=== PATIENT | female | born 1985 | race Hispanic/Latino ===

== ENCOUNTER 2017-05-20 16:17 | Emergency (ER) | payer SELFPAY ==
[2017-05-20] MEDS ORDERED: IPRATROPIUM/ALBUTEROL SULFATE 3 ML SOLUTION IH ONE (18:29)
== END 2017-05-20 19:52 | disposition home or self-care (01) ==
LOC: EDH 16:17
DX: J20.9 Acute bronchitis, unspecified (principal); Z98.51 Tubal ligation status; Z90.49 Acquired absence of other specified parts of digestive tract
CPT/HCPCS: 71046; 81025; 87804; 94640

== ENCOUNTER 2017-06-23 09:50 | Emergency (ER) | payer SELFPAY | END 2017-06-23 11:14 | disposition home or self-care (01) | LOC: EDH 09:50 | DX: T16.1XXA Foreign body in right ear, initial encounter (principal); X58.XXXA Exposure to other specified factors, initial encounter; Y93.89 Activity, other specified; Y92.89 Other specified places as the place of occurrence of the external cause; Y99.8 Other external cause status ==

== ENCOUNTER 2017-09-05 20:49 | Emergency (ER) | payer OTHER ==
[2017-09-05 21:40] LABS: APPEARANCE,URINE Cloudy (CLEAR); BILIRUBIN,URINE Negative (NEGATIVE); COLOR,URINE Yellow (YELLOW); GLUCOSE, URINE (UA) Negative (NEGATIVE); KETONES,URINE Trace mg/dL (NEGATIVE); LEUKOCYTE ESTERASE ,URINE Moderate (NEGATIVE); NITRATE,URINE Positive (NEGATIVE); OCCULT BLOOD,URINE Large (NEGATIVE); PROTEIN,URINE 300 (NEGATIVE)
[2017-09-05] MEDS ORDERED: ACETAMINOPHEN EXTRA STRENGTH 500 MG TABLET ONE (22:07)
[2017-09-05 22:10] LABS: RBC,URINE >100 /HPF (0-1)
[2017-09-05 22:11] LABS: BACTERIA,URINE Moderate /HPF (None Seen); WBC,URINE 26-50 /HPF (0-1)
[2017-09-05 22:13] LABS: MUCUS,URINE Moderate LPF (None Seen)
== END 2017-09-05 22:25 | disposition home or self-care (01) ==
LOC: EDH 20:49
DX: N39.0 Urinary tract infection, site not specified (principal)
CPT/HCPCS: 81001; 81025

== ENCOUNTER 2019-05-31 14:13 | Emergency (ER) | payer SELFPAY ==
[2019-05-31 14:46] LABS: APPEARANCE,URINE Cloudy (CLEAR); BILIRUBIN,URINE Negative (NEGATIVE); COLOR,URINE Yellow (YELLOW); GLUCOSE, URINE (UA) Negative (NEGATIVE); KETONES,URINE Negative (NEGATIVE); LEUKOCYTE ESTERASE ,URINE Moderate (NEGATIVE); NITRATE,URINE Negative (NEGATIVE); OCCULT BLOOD,URINE Negative (NEGATIVE); PROTEIN,URINE Negative (NEGATIVE)
[2019-05-31 14:52] LABS: AMPHET/METH SCREEN,URINE NEGATIVE (NEGATIVE); BACTERIA,URINE Few /HPF (None Seen); BARBITURATE SCREEN, URINE NEGATIVE (NEGATIVE); BENZODIAZEPINES SCREEN,URINE NEGATIVE (NEGATIVE); CANNABINOID SCREEN,URINE NEGATIVE (NEGATIVE); COCAINE SCREEN,URINE NEGATIVE (NEGATIVE); MUCUS,URINE Few LPF (None Seen); OPIATE SCREEN,URINE NEGATIVE (NEGATIVE); PHENCYCLIDINE SCREEN,URINE NEGATIVE (NEGATIVE); RBC,URINE 0-1 /HPF (0-1)
[2019-05-31 14:54] LABS: SQUAMOUS EPITHELIAL CELL,UR Moderate /HPF (0-2)
[2019-05-31 15:03] LABS: BASOPHILS % (AUTO) 0.6 % (0.0-5.0); EOSINOPHILS % (AUTO) 3.1 % (0.0-8.0); LYMPHOCYTES % (AUTO) 29.1 % (21.0-51.0); MEAN CORPUSCULAR HEMOGLOBIN 29.5 pg (27.0-33.0); MEAN CORPUSCULAR HGB CONC 33.8 g/dL (32.0-36.0); MEAN CORPUSCULAR VOLUME 87.5 fL (79-99); MONOCYTES % (AUTO) 6.3 % (3.0-13.0); NEUTROPHILS % (AUTO) 60.5 % (40.0-77.0); PLATELET COUNT (AUTO) 315 K/uL (130-400); RED BLOOD CELL COUNT(AUTO) 4.57 MIL/uL (4.00-5.50); RED CELL DISTRIBUTION WIDTH 13.4 % (11.0-15.5); WHITE BLOOD COUNT (AUTO) 8.4 K/uL (4.8-10.8)
[2019-05-31] MEDS ORDERED: NITROFURANTOIN MONOHYD/M-CRYST 100 MG CAPSULE PO ONE (15:19)
[2019-05-31] MEDS ORDERED: LIDOCAINE HCL 2% VISCOUS 15 ML UDCUP ONE (15:19)
[2019-05-31] MEDS ORDERED: MAG HYDROX/AL HYDROX/SIMETH ES 30 ML SUSP UDCUP ONE (15:19)
[2019-05-31] MEDS ORDERED: ACETAMINOPHEN EXTRA STRENGTH 500 MG TABLET ONE (15:19)
[2019-05-31 16:31] LABS: ALBUMIN 3.8 g/dL (3.5-5.0); BILIRUBIN,TOTAL 0.3 mg/dL (0.2-1.0); CREATININE 0.7 mg/dL (0.5-1.5); POTASSIUM 3.9 mmol/L (3.5-5.1); TOTAL PROTEIN, SERUM 8.4 g/dL (6.0-8.3)
[2019-05-31] MEDS ORDERED: KETOROLAC TROMETHAMINE 60 MG/2 ML VIAL ONE (16:39)
== END 2019-05-31 17:36 | disposition home or self-care (01) ==
LOC: EDH 14:13
DX: N39.0 Urinary tract infection, site not specified (principal); K29.70 Gastritis, unspecified, without bleeding; Z90.49 Acquired absence of other specified parts of digestive tract; Z98.51 Tubal ligation status; Z98.890 Other specified postprocedural states
CPT/HCPCS: 36415; 80053; 80305; 81001; 83690; 84702; 85025; 87088; 96372; 99284; J1885

== ENCOUNTER 2020-01-17 08:42 | Emergency (ER) | payer OTHER ==
[2020-01-17] MEDS ORDERED: KETOROLAC TROMETHAMINE 60 MG/2 ML VIAL ONE (08:59)
== END 2020-01-17 10:35 | disposition home or self-care (01) ==
LOC: EDH 08:42
DX: S92.421A Displaced fracture of distal phalanx of right great toe, initial encounter for closed fracture (principal); W01.0XXA Fall on same level from slipping, tripping and stumbling without subsequent striking against object, initial encounter; Y93.01 Activity, walking, marching and hiking; Y92.89 Other specified places as the place of occurrence of the external cause; Y99.8 Other external cause status
CPT/HCPCS: 73630; 96372; 99283; J1885

== ENCOUNTER 2024-02-22 15:18 | Emergency (ER) | payer SELFPAY ==
[~2024-02-22] VITALS: Ht 157.5 cm; Wt 108.9 kg
[2024-02-22] MEDS ORDERED: KETO10TA2 PO (16:32)
[2024-02-22] MEDS ORDERED: CLIN-141 PO (16:32)
--- NOTE | 2024-02-22 16:33 | ERN ---
General Chief Complaint: Tooth Ache/Pain Stated Complaint: PAIN AND SWELLING ON RIGHT SIDE OF FACE Time Seen by MD: 15:22 Time Seen by Midlevel: 15:22 Source: patient History of Present Illness Initial Comments Patient is a 38-year-old female presenting to the emergency department with right-sided facial swelling that happened overnight. Patient states she has been having pain to her right upper molar for the last couple of days. This morning she woke up with swelling and decided to report to the ER for further evaluation. She denies any fever, chills, or any other symptoms at this time. Allergies: Coded Allergies: No Known Allergies (Unverified Allergy, Unknown, 01/17/20) Home Meds Active Scripts Ketorolac Tromethamine (Ketorolac Tromethamine) 10 Mg Tablet, 1 TAB PO TID for pain for 5 Days, #15 TAB 0 Refills Prov:OMERO POPE 02/22/24 Clindamycin HCl (Clindamycin HCl) 300 Mg Capsule, 1 CAP PO TID for 10 Days, #30 CAP 0 Refills Prov:OMERO POPE 02/22/24 Past Medical History Past Medical History: No Pertinent History Past Surgical History: Cholecystectomy, Surgical History Other: TUBAL ROS Dictation CONSTITUTIONAL: Negative except for HPI HEAD/FACE: Negative except for HPI EENT: Negative except for HPI RESPIRATORY: Negative except for HPI GASTROINTESTINAL/ABDOMINAL: Negative except for HPI GENITOURINARY: Negative except for HPI MUSCULOSKELETAL: Negative except for HPI INTEGUMENTARY: Negative except for HPI NEUROLOGICAL/PSYCH: Negative except for HPI HEMATOLOGIC/LYMPHATIC: Negative except for HPI All Systems Negative, Except as noted above. 13 point review of systems assessed and all negative except for above. Physical Exam Physical Exam Dictation PHYSICAL EXAM: GENERAL: alert,, awake oriented x 3 HEENT: EOMI, Sclera non icteric, moist mucosa, poor dentition, there was right upper gingival swelling, dental caries throughout the entire mouth, facial swelling over the right maxillary area NECK: Supple, no JVD, trachea midline LUNGS: Clear breath sounds bilaterally. No wheezes HEART: Regular rate and rhythm. Normal S1 and S2, without murmurs ABD: Abdomen soft, nontender. Bowel sounds present EXT: No clubbing or cyanosis, NEURO: Alert and oriented to person, follows commands MDM MDM: Patient is a 38-year-old female presenting to the emergency department with right-sided facial swelling that happened overnight. Patient states she has been having pain to her right upper molar for the last couple of days. This morning she woke up with swelling and decided to report to the ER for further evaluation. She denies any fever, chills, or any other symptoms at this time. Physical examination is consistent with a dental abscess. Vital signs stable. Patient is nontoxic appearing. She is still tolerating secretions and is able to open and close mouth fully. She was started on clindamycin IV in the emergency department and will be discharged home with oral clindamycin. Patient was advised to follow up with dentist as soon as possible for outpatient evaluation. Differential diagnosis: Cellulitis, dental abscess, dental caries There are no social concerns with this patient. Prescription drug management Prescriptions will include: Clindamycin, Toradol Medical management and examination interpretation discussions were had by me with other qualified healthcare professionals as indicated for the patient's care. ED Course Orders Procedure Category Date Status Time Clindamycin Ivpb PHA 02/22/24 In Process 600mg/50ml (Cleocin 16:00 Dexamethasone 4mg/Ml PHA 02/22/24 Complete 1ml Vial (Dexametha 16:00 Ketorolac PHA 02/22/24 Complete Tromethamine 15mg/Ml 16:00 Current Medications Medications (Trade) Dose Ordered Sig/Jose Roberto Route PRN Reason Start Time Stop Time Status Last Admin Dose Admin Clindamycin HCl/ Dextrose 50 ml @ 100 mls/hr Q8H IV 02/22/24 16:00 03/03/24 15:59 Dexamethasone Sodium Phosphate (dexaMETHasone 4MG/ML 1ML VIAL) 10 mg ONCE ONCE IV 02/22/24 16:00 02/22/24 16:01 DC Ketorolac Tromethamine (toRADol) 15 mg ONCE ONCE IV 02/22/24 16:00 02/22/24 16:01 DC Vital Signs Date Time Temp Pulse Resp B/P (MAP) Pulse Ox O2 Delivery O2 Flow Rate FiO2 02/22/24 17:02 98.2 90 16 125/80 98 Room Air* 0 21 02/22/24 15:42 98.6 91 20 128/80 96 Room Air 0 DX & DISP Disposition: Discharge Departure Impression: Primary Impression: Dental abscess Condition: Stable Scripts Ketorolac Tromethamine (Ketorolac Tromethamine) 10 Mg Tablet 1 TAB PO TID for pain for 5 Days, #15 TAB 0 Refills Prov: OMERO POPE 02/22/24 Clindamycin HCl (Clindamycin HCl) 300 Mg Capsule 1 CAP PO TID for 10 Days, #30 CAP 0 Refills Prov: OMERO POPE 02/22/24 Additional Instructions: Your physical examination is consistent with a dental abscess. You will need to see a dentist for tooth extraction. You were given antibiotics in the emergency department and will discharged home with a prescription for oral antibiotics. Please see dentist as soon as possible. Follow up with your primary care doctor in 2-3 days for repeat evaluation. Return to the ER for any new or worsening symptoms Referrals: SELF,REFERRAL (PCP) Time of Disposition: 16:31 I have reviewed the case, and I agree with, Diagnosis and Plan I performed the substantive portion of the visit. I have reviewed and pe rsonally made and approve the management plan that is documented in the note by myself or the SHANE. I acknowledge for responsibility for the patient's management plan. OMERO POPE Feb 22, 2024 16:33
[2024-02-22] MEDS: dexaMETHasone SOD PHOSPHATE 4 MG/ML 1ML VIAL IV ONE (17:51)
[2024-02-22] MEDS: ketOROlac 15MG/ML VIAL (15MG/ML) IV ONE (17:51)
[2024-02-22] MEDS: CLINDAMYCIN IVPB 600MG/50ML 50 ML IV SCH (17:51)
[2024-02-22 18:08] VITALS: BP 134/62; PULSE 78; RESP 20; TEMP 98.6; O2SAT 98
== END 2024-02-22 18:11 | disposition home or self-care (01) ==
LOC: EDH 15:18
DX: K04.7 Periapical abscess without sinus (principal); Z90.49 Acquired absence of other specified parts of digestive tract; Z79.899 Other long term (current) drug therapy
CPT/HCPCS: 99284; 96365; 96375; J1100; J1885; J3490